=== PATIENT | male | born 1960 | race African-American/Black ===

== ENCOUNTER 2017-08-04 14:30 | Emergency (ER) | payer OTHER ==
[~2017-08-04] VITALS: Ht 175.3 cm; Wt 80.0 kg
[2017-08-04 14:33] VITALS: BP 160/90; PULSE 103; RESP 12; TEMP 98.5; O2SAT 97
[2017-08-04] MEDS ORDERED: DILA100C PO ×2 (16:30→19:27)
[2017-08-04] MEDS ORDERED: AMLO10TA2 PO ×2 (16:30→19:27)
--- NOTE | 2017-08-04 17:27 | PD ---
HPI . Cough Chief Complaint: Cold / Flu Symptoms Time Seen by Provider: 16:31 Travel History International Travel<30 days: No Contact w/Intl Traveler<30days: No Traveled to known affect area: No History of Present Illness HPI 57-year-old male patient presents emergency department for evaluation of cough 3-4 days. Patient states the cough is productive in nature and he is coughing up yellow thick phlegm. Patient denies any fever or chills. Patient states he does feel short of breath when he starts coughing. Patient is a smoker and smokes about 6 cigarettes a day but is trying to quit. Patient's major medical history seizures. He takes Dilantin for his seizures. PFSH Past Medical History Diminished Hearing: No Hypertension: Yes Seizures: Yes Influenza Vaccination: No Past Surgical History Abdominal Surgery: Yes Neurologic Surgery: Yes Social History Alcohol Use: No Tobacco Use: Yes (09/26 PPD) Substance Use: No Allergies-Medications (Allergen,Severity, Reaction): Coded Allergies: No Known Allergies (Unverified , 08/04/17) Reported Meds & Prescriptions Reported Meds & Active Scripts Active Reported Amlodipine (Amlodipine Besylate) 10 Mg Tab 10 Mg PO DAILY Dilantin (Phenytoin Extended) 100 Mg Cap 300 Mg PO BID Review of Systems Except as stated in HPI: all other systems reviewed are Neg Respiratory: Positive: Cough, Shortness of Breath Physical Exam Narrative GENERAL: Well-nourished, well-developed 57-year-old male patient in no acute respiratory distress. Nontoxic appearing. SKIN: Focused skin assessment warm/dry. HEAD: Normocephalic. Atraumatic. EYES: No scleral icterus. No injection or drainage. THROAT: Mild pharyngeal injection, No exudates, or tonsillar hypertrophy. Airway is patent. EARS: Bilateral pinnae and external canals appear within normal limits. Bilateral tympanic membranes without erythema, dullness or perforation. NECK: Supple, trachea midline. No JVD or lymphadenopathy. CARDIOVASCULAR: Regular rate and rhythm without murmurs, gallops, or rubs. RESPIRATORY: Breath sounds clear throughout and equal bilaterally. No accessory muscle use. GASTROINTESTINAL: Abdomen soft, non-tender, nondistended. MUSCULOSKELETAL: No cyanosis, or edema. BACK: Nontender without obvious deformity. No CVA tenderness. Data Data Last Documented VS Vital Signs Date Time Temp Pulse Resp B/P (MAP) Pulse Ox O2 Delivery O2 Flow Rate FiO2 08/04/17 16:09 Room Air 08/04/17 14:33 98.5 103 12 160/90 (113) 97 Orders Orders Chest, Single Ap (08/04/17 17:20) MDM Medical Decision Making Medical Screen Exam Complete: Yes Emergency Medical Condition: Yes Differential Diagnosis Differential diagnoses include but not limited to bronchitis, pneumonia, URI, pharyngitis Narrative Course 57-year-old male patient presents emergency department for evaluation of productive cough 3-4 days. Patient is a smoker. Chest x-ray ordered and pending. Chest x-ray shows no acute disease. Patient will be discharged home with prescription for a Z-Sebas for bronchitis. Patient will be given instructions on supportive care and told to follow up with his primary care return the emergency Department with any worsening condition. Last Impressions Chest X-Ray 08/04/17 1720 Signed Impressions: Service Date/Time: Friday, August 04, 2017 17:35 - CONCLUSION: No acute cardiopulmonary abnormality is identified. Manolo Strickland MD Diagnosis Primary Impression: Bronchitis Referrals: Primary Care Physician Patient Instructions: Acute Bronchitis (ED), General Instructions, How to Stop Smoking (ED) Additional Instructions: Please return to emergency department if your symptoms return or worsen. Follow up with your primary care provider. Take medications as prescribed. Stop smoking. May take ibuprofen or Tylenol as needed for pain or fever. Med/Other Pt SpecificInfo: Prescription(s) given Scripts Azithromycin (Azithromycin) 250 Mg Tab 250 MG PO DIRECTED for Infection, #6 TAB 0 Refills Take 2 tabs (500 mg) on day 1 then 1 tab daily x 4 days. Prov: Paulina Jones Shonda ANDERSON 08/04/17 Disposition: 01 DISCHARGE HOME Condition: Stable Paulina Jones Shonda ANDERSON Aug 04, 2017 17:27
--- NOTE | 2017-08-04 17:59 | RADRPT ---
EXAM DATE/TIME: 08/04/2017 17:35 [facility] COMPARISON: No previous studies available for comparison. INDICATIONS : Shortness of breath. MEDICAL HISTORY : Hypertension. Seizures SURGICAL HISTORY : None. ENCOUNTER: Initial ACUITY: 4 - 6 days PAIN SCORE: 0/10 LOCATION: Bilateral chest FINDINGS: Portable AP view of the chest demonstrates a normal-sized cardiac silhouette. No effusion, consolidat ion, or pneumothorax is visualized. There are linear opacities in the peripheral right midlung zone l ikely representing parenchymal scar or mild atelectasis. The bones and soft tissues demonstrate no ac [place] abnormality. CONCLUSION: No acute cardiopulmonary abnormality is identified. Manolo Strickland MD on August 04, 2017 at 17:57 Board Certified Radiologist. This report was verified electronically.
[2017-08-04] MEDS ORDERED: AZIT250T3 PO (18:31)
[2017-08-04] MEDS ORDERED: PHENYTOIN SODIUM 100 MG CAP PO SCH (19:30)
[2017-08-04 19:31] VITALS: BP 165/82; PULSE 86; RESP 20; O2SAT 96
--- NOTE | 2017-08-04 19:32 | PD ---
Physical Exam Narrative Prior to discharge patient requesting a refill of his Dilantin and amlodipine. Patient states that he last took his Dilantin this morning was only able to take 200 mg. Patient reports he is supposed to take 300 milligrams twice a day. Patient states he also takes amlodipine 10 mg daily. Patient states he has an appointment scheduled with his primary care doctor in [facility]. Patient reports he is here on vacation and is out of his medications. Data Data Last Documented VS Vital Signs Date Time Temp Pulse Resp B/P (MAP) Pulse Ox O2 Delivery O2 Flow Rate FiO2 08/04/17 16:09 Room Air 08/04/17 14:33 98.5 103 12 160/90 (113) 97 Orders Orders Chest, Single Ap (08/04/17 17:20) Ed Discharge Order (08/04/17 18:32) Phenytoin (Dilantin) (08/04/17 19:30) MDM Supervised Visit with RAYMUNDO: No Narrative Course Patient in no obvious distress upon re-evaluation. Informed patient wouldn't give him one week's worth of prescription medicine and he would need additional refills from his primary care doctor. Patient is agreeable to this. Patient was asked if they wanted to speak to my attending, which the patient did not wish to do at this time. Any questions/concerns in reference to patient diagnosis/condition discussed and clarified prior to patient's discharge. Reinforced sheer importance of close follow up with patient's primary physician or primary care clinic. Instructed patient to return to ED immediately, if symptoms return/worsen. Patient showed understanding of above instructions. Further instructions and recommendations were detailed in discharge paperwork. Patient ambulated without difficulty out of ED at discharge. Diagnosis Primary Impression: Bronchitis Additional Impression: Medication refill Referrals: Primary Care Physician Patient Instructions: Acute Bronchitis (ED), General Instructions, How to Stop Smoking (ED), Medication Refill, ED Departure Forms: Tests/Procedures Additional Instruction: Please return to emergency department if your symptoms return or worsen. Follow up with your primary care provider. Take medications as prescribed. Stop smoking. May take ibuprofen or Tylenol as needed for pain or fever. Scripts Amlodipine (Amlodipine) 10 Mg Tab 10 MG PO DAILY for Blood Pressure Management for 7 Days, #7 TAB 0 Refills Prov: Perla Soares DO 08/04/17 Phenytoin Extended (Dilantin) 100 Mg Cap 300 MG PO BID for Control Seizures for 7 Days, #42 CAP 0 Refills Prov: Perla Soares 08/04/17 Azithromycin (Azithromycin) 250 Mg Tab 250 MG PO DIRECTED for Infection, #6 TAB 0 Refills Take 2 tabs (500 mg) on day 1 then 1 tab daily x 4 days. Prov: KarenPaulinaalejandra ANDERSON 08/04/17 Disposition: 01 DISCHARGE HOME Condition: Stable Samuel Bullock Aug 04, 2017 19:32
== END 2017-08-04 19:47 | disposition home or self-care (01) ==
LOC: NEPD 14:30
DX: J40 Bronchitis, not specified as acute or chronic (principal); F17.210 Nicotine dependence, cigarettes, uncomplicated
CPT/HCPCS: 71010; 99283

== ENCOUNTER 2017-08-23 11:10 | Emergency (ER) | payer OTHER ==
[~2017-08-23] VITALS: Ht 175.3 cm; Wt 87.5 kg
[~2017-08-23 11:10] MED LIST: AMLO10TA2 PO; AZIT250T3 PO; DILA100C PO
[2017-08-23 11:11] VITALS: BP 167/91; PULSE 100; RESP 20; TEMP 98.9; O2SAT 95
[2017-08-23] MEDS ORDERED: SODIUM CHLORIDE 0.9% FLUSH 10 ML FLUSH IVF PRN (11:30)
--- NOTE | 2017-08-23 11:38 | PD ---
HPI Chief Complaint: Dizziness Time Seen by Provider: 11:30 Travel History International Travel<30 days: No Contact w/Intl Traveler<30days: No Traveled to known affect area: No History of Present Illness HPI 57 year old male presents to the emergency department for evaluation of dizziness, headache that started last night. Patient states he has a bilateral temporal headache, 8/10, aching without radiation that started gradually last night. He states it is actually better now than it was. He states that he was feeling like he was going to have a seizure. He, however, is unsure if he had a seizure. He states he usually knows if he bites his tongue, but denies any lacerations/abrasions to the tongue. He is on Dilantin for his seizures. He states that he is running out of his Dilantin, but is not yet. He does state that he took his Dilantin this morning. He states he has not taken his amlodipine to 3 days for his hypertension. He states that he is from [facility] and does not have a primary care physician appear even though he would like to stay appear. The patient thinks that his headache and dizziness that may also be due to high blood pressure. He denies any chest pain or shortness breath. No new abdominal pain. No nausea, vomiting, diarrhea, constipation. No syncope. Patient appears well on exam. Moderate severity. No alleviating or exacerbating factors. PFSH Past Medical History Diminished Hearing: No Hypertension: Yes Seizures: Yes Past Surgical History Abdominal Surgery: Yes Neurologic Surgery: Yes Social History Alcohol Use: No Tobacco Use: Yes (09/26 PPD) Substance Use: No Allergies-Medications (Allergen,Severity, Reaction): Coded Allergies: No Known Allergies (Unverified , 08/04/17) Reported Meds & Prescriptions Reported Meds & Active Scripts Active Amlodipine (Amlodipine Besylate) 10 Mg Tab 10 Mg PO DAILY 7 Days Dilantin (Phenytoin Extended) 100 Mg Cap 300 Mg PO BID 7 Days Azithromycin 250 Mg Tab 250 Mg PO DIRECTED Take 2 tabs (500 mg) on day 1 then 1 tab daily x 4 days. Review of Systems Except as stated in HPI: all other systems reviewed are Neg Physical Exam Narrative GENERAL: Well-nourished, well-developed male patient, ambulatory. Afebrile. SKIN: Focused skin assessment warm/dry. HEAD: Normocephalic. Atraumatic. EYES: No scleral icterus. No injection or drainage. PERRLA. EOM intact. ENT: Mucosa pink and moist. No erythema or exudates. No uvular edema. No uvular , palatal, or tonsillar deviation. Airway patent. Nasal turbinates appear normal without nasal blood, purulent drainage or septal hematoma. Bilateral tympanic membranes are clear without erythema or perforation. NECK: Supple, trachea midline. No JVD or lymphadenopathy. CARDIOVASCULAR: Regular rate and rhythm without murmurs, gallops, or rubs. Bilateral radial and pedal pulses are 2+. RESPIRATORY: Breath sounds equal bilaterally. No accessory muscle use. Lungs sounds are clear to auscultation. GASTROINTESTINAL: Abdomen soft, non-tender, nondistended. MUSCULOSKELETAL: No cyanosis, or edema. Bilateral upper and lower extremity strength 5/5. All extremities are neurovascularly intact. BACK: Nontender without obvious deformity. No CVA tenderness. NEUROLOGICAL: Awake and alert. Cranial nerves II through XII intact. Motor and sensory grossly within normal limits. Five out of 5 muscle strength in all muscle groups. Normal speech. Finger to nose is normal bilaterally. Heel-to- giraldo is normal bilaterally. Data Data Last Documented VS Vital Signs Date Time Temp Pulse Resp B/P (MAP) Pulse Ox O2 Delivery O2 Flow Rate FiO2 08/23/17 11:11 98.9 100 20 167/91 (116) 95 Room Air Orders Orders Electrocardiogram (08/23/17 11:28) Basic Metabolic Panel (Bmp) (08/23/17 11:28) Complete Blood Count With Diff (08/23/17 11:28) Magnesium (Mg) (08/23/17 11:28) Ckmb (Isoenzyme) Profile (08/23/17 11:28) Troponin I (08/23/17 11:28) Ct Brain W/O Iv Contrast(Rout) (08/23/17 11:28) Ecg Monitoring (08/23/17 11:28) Iv Access Insert/Monitor (08/23/17 11:28) Oximetry (08/23/17 11:28) Sodium Chloride 0.9% Flush (Ns Flush) (08/23/17 11:30) Amlodipine (Norvasc) (08/23/17 11:30) Phenytoin (Dilantin) (08/23/17 11:28) CKMB (08/23/17 11:45) CKMB% (08/23/17 11:45) Labs Laboratory Tests Test 08/23/17 11:45 White Blood Count 3.6 TH/MM3 Red Blood Count 5.41 MIL/MM3 Hemoglobin 15.6 GM/DL Hematocrit 47.4 % Mean Corpuscular Volume 87.5 FL Mean Corpuscular Hemoglobin 28.8 PG Mean Corpuscular Hemoglobin Concent 32.9 % Red Cell Distribution Width 14.7 % Platelet Count 161 TH/MM3 Mean Platelet Volume 8.3 FL Neutrophils (%) (Auto) 47.6 % Lymphocytes (%) (Auto) 40.7 % Monocytes (%) (Auto) 9.5 % Eosinophils (%) (Auto) 1.7 % Basophils (%) (Auto) 0.5 % Neutrophils # (Auto) 1.7 TH/MM3 Lymphocytes # (Auto) 1.5 TH/MM3 Monocytes # (Auto) 0.3 TH/MM3 Eosinophils # (Auto) 0.1 TH/MM3 Basophils # (Auto) 0.0 TH/MM3 CBC Comment DIFF FINAL Differential Comment Blood Urea Nitrogen 18 MG/DL Creatinine 1.45 MG/DL Random Glucose 108 MG/DL Calcium Level 9.0 MG/DL Magnesium Level 2.0 MG/DL Sodium Level 140 MEQ/L Potassium Level 4.1 MEQ/L Chloride Level 103 MEQ/L Carbon Dioxide Level 33.1 MEQ/L Anion Gap 4 MEQ/L Estimat Glomerular Filtration Rate 61 ML/MIN Total Creatine Kinase 194 U/L Creatine Kinase MB 2.2 NG/ML Troponin I LESS THAN 0.02 NG/ML Phenytoin (Dilantin) Level 18.5 MCG/ML [facility] Medical Decision Making Medical Screen Exam Complete: Yes Emergency Medical Condition: Yes Medical Record Reviewed: Yes Differential Diagnosis Medication refill versus electrolyte abnormality versus intracranial abnormality versus tension-type headache versus dehydration versus seizure Narrative Course 57-year-old male presents to the emergency department for evaluation of dizziness, headache that started last night. He is unsure if he had a seizure last night. He is currently on Dilantin. He also reports hypertension and being out of his blood pressure medication for 3 days. Patient does appear well and exam. EKG, CBC, BMP, magnesium, CK, troponin, Dilantin level, CT of the brain are ordered and pending. Patient is given amlodipine 10 mg by mouth. EKG shows sinus rhythm, heart rate 86, no acute ST changes. CBC shows no acute abnormality. BMP shows no acute abnormality. Magnesium is 2.0. CK is 194. Troponin is less than 0.02. Dilantin level is 18.5. CT of the brain shows probable chronic changes left lobe of the region without hemorrhage. Upon reexamination, patient reports relief of his headache after amlodipine. His blood pressure is now 129/84. Patient is requesting refills of his Dilantin and his amlodipine. These will be given today. He is encouraged to follow primary care physician for further refills. The patient was discharged in stable condition with instructions, including return instructions and follow up instructions. Diagnosis Primary Impression: Medication refill Additional Impression: Headache Qualified Codes: R51 - Headache Referrals: Primary Care Physician call for appointment Patient Instructions: General Instructions, Medication Refill, ED Additional Instructions: Take amlodipine as directed as prescribed. Take Dilantin as directed as prescribed. Follow-up with your primary care physician for further refills. Return to the emergency department for any acute worsening of symptoms. Med/Other Pt SpecificInfo: Prescription(s) given Scripts Amlodipine (Amlodipine) 10 Mg Tab 10 MG PO DAILY for Blood Pressure Management for 30 Days, #30 TAB 0 Refills Prov: Rina Stokes 08/23/17 Phenytoin Extended (Dilantin) 100 Mg Cap 300 MG PO BID for Control Seizures for 30 Days, #180 CAP 0 Refills Prov: Rina Stokes 08/23/17 Disposition: 01 DISCHARGE HOME Condition: Stable Rina Stokes Aug 23, 2017 11:37
[2017-08-23 12:00] VITALS: BP 164/107; PULSE 88; RESP 16; O2SAT 99
[2017-08-23 12:04] LABS: AUTOMATED NEUTROPHIL # 1.7 TH/MM3 (1.8-7.7); BASOPHIL % 0.5 % (0.0-2.0); EOSINOPHIL # 0.1 TH/MM3 (0-0.4); EOSINOPHIL % 1.7 % (0.0-4.0); HEMATOCRIT 47.4 % (39.0-51.0); HEMO FLAGS DIFF FINAL; LYMPH % 40.7 % (9.0-44.0); LYMPHOCYTE # 1.5 TH/MM3 (1.0-4.8); MEAN CELL VOLUME 87.5 FL (80.0-100.0); MEAN CORPUSCULAR HEMOGLOBIN 28.8 PG (27.0-34.0); MEAN CORPUSCULAR HGB CONC 32.9 % (32.0-36.0); MONO % 9.5 % (0.0-8.0); NEUT % 47.6 % (16.0-70.0); PLATELET COUNT 161 TH/MM3 (150-450); RED BLOOD COUNT 5.41 MIL/MM3 (4.50-5.90); RED CELL DISTRIBUTION WIDTH 14.7 % (11.6-17.2); WHITE BLOOD COUNT 3.6 TH/MM3 (4.0-11.0)
--- NOTE | 2017-08-23 12:15 | RADRPT ---
EXAM DATE/TIME: 08/23/2017 11:58 [facility] COMPARISON: No previous studies available for comparison. INDICATIONS : Headache along with dizziness and nausea. Off blood pressure medicine for three days RADIATION DOSE: 31.39 CTDIvol (mGy) MEDICAL HISTORY : Hypertension. Seizures. SURGICAL HISTORY : None. ENCOUNTER: Initial ACUITY: 3 days PAIN SCALE: 3/10 LOCATION: cranial TECHNIQUE: Multiple contiguous axial images were obtained of the head. Using automated exposure control and adj ustment of the mA and/or kV according to patient size, radiation dose was kept as low as reasonably a chievable to obtain optimal diagnostic quality images. DICOM format image data is available electro nically for review and comparison. FINDINGS: The study is abnormal. There is an area of apparent encephalomalacia containing some calcification i n the left orbitofrontal region. I have no prior studies for comparison. The right hemisphere is un remarkable. Posterior fossa appears normal. CONCLUSION: Probable chronic changes left lobe of the region without hemorrhage. Thee Guadalupe MD FACR on August 23, 2017 at 12:11 Board Certified Radiologist. This report was verified electronically.
[2017-08-23 12:21] LABS: ANION GAP 4 MEQ/L (5-15); BICARBONATE 33.1 MEQ/L (21.0-32.0); BLOOD UREA NITROGEN 18 MG/DL (7-18); CHLORIDE 103 MEQ/L (98-107); GLOMERULAR FILTRATION RATE 61 ML/MIN (>89); POTASSIUM 4.1 MEQ/L (3.5-5.1); SODIUM (NA) 140 MEQ/L (136-145)
[2017-08-23 12:25] LABS: CREATINE KINASE 194 U/L (39-308)
[2017-08-23 12:37] LABS: CKMB 2.2 NG/ML (0.5-3.6)
[2017-08-23] MEDS ORDERED: DILA100C PO (12:51)
[2017-08-23] MEDS ORDERED: AMLO10TA2 PO (12:51)
[2017-08-23 13:00] VITALS: BP 134/100; PULSE 88; RESP 18; O2SAT 99
[2017-08-23 13:29] VITALS: BP 129/84
--- NOTE | 2017-08-25 23:41 | EKG ---
Date Performed: 08/23/2017 Time Performed: 11:38:48 PTAGE: 57 years EKG: Sinus rhythm LEFT ATRIAL ENLARGEMENT ABNORMAL ECG NO PREVIOUS TRACING DOCTOR: Hever Wise Interpretating Date/Time 08/25/2017 23:41:17
== END 2017-08-23 13:34 | disposition home or self-care (01) ==
LOC: NEPC 11:10
DX: Z76.0 Encounter for issue of repeat prescription (principal); R51 Headache; R42 Dizziness and giddiness; R94.31 Abnormal electrocardiogram [ECG] [EKG]; R56.9 Unspecified convulsions; I10 Essential (primary) hypertension; F17.200 Nicotine dependence, unspecified, uncomplicated; Z79.899 Other long term (current) drug therapy
CPT/HCPCS: 70450; 80048; 80185; 82550; 82552; 83735; 84484; 85025; 93005; 99285

== ENCOUNTER 2017-10-10 14:40 | Emergency (ER) | payer OTHER ==
[~2017-10-10] VITALS: Ht 175.3 cm; Wt 88.0 kg
[2017-10-10 14:41] VITALS: BP 154/92; PULSE 125; RESP 20; TEMP 98.9; O2SAT 97
--- NOTE | 2017-10-10 15:37 | RADRPT ---
EXAM DATE/TIME: 10/10/2017 15:28 [facility] COMPARISON: CHEST SINGLE AP, August 04, 2017, 17:35. INDICATIONS : Cough. MEDICAL HISTORY : Hypertension. seizures SURGICAL HISTORY : None. ENCOUNTER: Initial ACUITY: 1 day PAIN SCORE: 0/10 LOCATION: Bilateral chest FINDINGS: PA and lateral views of the chest demonstrate the lungs to be symmetrically aerated without evidence of mass, infiltrate or effusion except for some atelectasis in the right mid lung zone. The cardiome diastinal contours are unremarkable. Osseous structures are intact. CONCLUSION: Mild patchy areas of atelectasis predominantly in the right midlung zone Jenaro Duncan MD on October 10, 2017 at 15:34 Board Certified Radiologist. This report was verified electronically.
--- NOTE | 2017-10-10 16:10 | PD ---
HPI Chief Complaint: Cold / Flu Symptoms Time Seen by Provider: 15:26 Travel History International Travel<30 days: No Contact w/Intl Traveler<30days: No Traveled to known affect area: No History of Present Illness HPI 57-year-old male presents to emergency Department with complaint of cough, chest congestion, nasal congestion, sore throat, body aches, headache 3 days. Denies fevers. Denies chest pain, chest tightness, shortness of breath, wheezing. Denies abdominal pain, vomiting. Symptoms are mild in severity. Has not taken any medications or tried any treatments to alleviate symptoms. No known aggravating or relieving factors. No known sick contacts. Primary care provider is down in [facility]. History of seizures and hypertension. Needs refills on his Dilantin and amlodipine. Just ran out yesterday. Has no medical complaints. No other modifying factors or associated signs and symptoms. PFSH Past Medical History Cardiovascular Problems: Yes (HTN) Diminished Hearing: No Hypertension: Yes Neurologic: Yes (HEAD INJURY ) Immunizations Current: Yes Seizures: Yes Past Surgical History Abdominal Surgery: Yes Neurologic Surgery: Yes (HEAD TRAUMA ) Social History Alcohol Use: No Tobacco Use: Yes (09/26 PPD) Substance Use: No Allergies-Medications (Allergen,Severity, Reaction): Coded Allergies: No Known Allergies (Unverified , 08/04/17) Reported Meds & Prescriptions Reported Meds & Active Scripts Active Amlodipine (Amlodipine Besylate) 10 Mg Tab 10 Mg PO DAILY 30 Days Dilantin (Phenytoin Extended) 100 Mg Cap 300 Mg PO BID 30 Days Review of Systems Except as stated in HPI: all other systems reviewed are Neg Physical Exam Narrative GENERAL: Well-nourished, well-developed black male patient, in no acute distress ; afebrile, nontoxic-appearing SKIN: Warm and dry. No rash. HEAD: Atraumatic. Normocephalic. EYES: Pupils equal and round. No scleral icterus. No injection or drainage. ENT: Mucosa pink and moist. No erythema or exudates. No uvular edema. No uvular , palatal, or tonsillar deviation. Airway patent. EARS: Bilateral pinnae and external canals appear within normal limits. Bilateral tympanic membranes without erythema, dullness or perforation. NECK: Trachea midline. No lymphadenopathy. CARDIOVASCULAR: Regular rate and rhythm. No murmur appreciated. RESPIRATORY: No accessory muscle use. Clear to auscultation. Breath sounds equal bilaterally. No retractions or tachypnea. GASTROINTESTINAL: Abdomen soft, non-tender, nondistended. Hepatic and splenic margins not palpable. Bowel sounds are active 4 quadrants. MUSCULOSKELETAL: No obvious deformities. No clubbing. No cyanosis. No edema. NEUROLOGICAL: Awake and alert. Oriented 3. No obvious cranial nerve deficits. Motor grossly within normal limits. Normal speech. Moves all extremities. 5/5 strength to all extremities. PSYCHIATRIC: Appropriate mood and affect; insight and judgment normal. Data Data Last Documented VS Vital Signs Date Time Temp Pulse Resp B/P (MAP) Pulse Ox O2 Delivery O2 Flow Rate FiO2 10/10/17 16:37 104 10/10/17 14:41 98.9 20 97 Orders Orders Chest, Pa & Lat (10/10/17 ) Influenzae A/B Antigen (10/10/17 15:27) Group A Rapid Strep Screen (10/10/17 16:15) Strep Culture (Group A) (10/10/17 16:10) Ed Discharge Order (10/10/17 17:00) MDM Medical Decision Making Medical Screen Exam Complete: Yes Emergency Medical Condition: Yes Medical Record Reviewed: Yes Differential Diagnosis Influenza, rapid strep, viral illness,pneumonia, medication refill Narrative Course 57-year-old male with cold/flu symptoms 3 days. Patient is afebrile and nontoxic-appearing. Denies fever, vomiting. Is also requesting refills on Dilantin and amlodipine. Just ran out of his medications yesterday. Chest x- ray ordered in triage. Influenza and rapid strep ordered. 1609: Chest x-ray concludes Chest X-Ray 10/10/17 0000 Signed Impressions: Service Date/Time: September 15:28 - CONCLUSION: Mild patchy areas of atelectasis predominantly in the right midlung zone Jenaro Duncan MD 1636: Influenza negative. 1658: rapid strep negative. Discussed viral illness and symptom management. Patient verbalizes understanding and agreement. Dilantin and amlodipine refills prescribed for home. Instructed patient to follow up with primary care provider. Patient verbalizes understanding and agreement with treatment plan. Patient is medically cleared and stable for discharge. Discussed reasons to return to the emergency department. Patient agrees with treatment plan. The patients vital signs are stable and the patient is stable for outpatient follow- up and treatment. Patient discharged home, stable and in no acute distress. Diagnosis Primary Impression: Viral illness Additional Impression: Medication refill Referrals: [facility] Primary Care Physician Patient Instructions: Cold Symptoms (ED), General Instructions, Medication Refill, ED, Safe Use of Cough and Cold Medicines (ED) Additional Instructions: Ibuprofen or Tylenol as directed and as needed to reduce fever; may alternate ibuprofen and Tylenol as needed every 3 hours to minimize fever [id number] cold/flu medications as directed and as needed for symptom management Get plenty of sleep/rest Drink plenty of fluids to prevent dehydration; such as Gatorade, Powerade, Pedialyte [place] diet to encourage nutrition such as crackers, fruit, applesauce, toast, soup etc. Use an air humidifier/turn off ceiling fans Follow-up with your primary care provider within 1 day Return immediately to the emergency department with worsening of symptoms Med/Other Pt SpecificInfo: Prescription(s) given Scripts Amlodipine (Amlodipine) 10 Mg Tab 10 MG PO DAILY for Blood Pressure Management for 30 Days, #30 TAB 0 Refills Prov: Kemi Shukla 10/10/17 Phenytoin Extended (Dilantin) 100 Mg Cap 300 MG PO BID for Control Seizures for 30 Days, #180 CAP 0 Refills Prov: Kemi Shukla 10/10/17 Disposition: 01 DISCHARGE HOME Condition: Stable Kemi Shukla Oct 10, 2017 16:10
[2017-10-10 16:37] VITALS: PULSE 104
[2017-10-10] MEDS ORDERED: AMLO10TA2 PO (16:37)
[2017-10-10] MEDS ORDERED: DILA100C PO (16:37)
== END 2017-10-10 17:11 | disposition home or self-care (01) ==
LOC: NEPK 14:40
DX: B34.9 Viral infection, unspecified (principal); J98.11 Atelectasis; I10 Essential (primary) hypertension; R56.9 Unspecified convulsions; F17.210 Nicotine dependence, cigarettes, uncomplicated; Z76.0 Encounter for issue of repeat prescription
CPT/HCPCS: 71046; 87081; 87804; 87880; 99284

== ENCOUNTER 2017-11-05 10:29 | Emergency (ER) | payer OTHER ==
[~2017-11-05] VITALS: Ht 175.3 cm; Wt 86.4 kg
[~2017-11-05 10:29] MED LIST changes: -AZIT250T3 PO
[2017-11-05 10:30] VITALS: BP 159/88; PULSE 97; RESP 18; TEMP 98.1; O2SAT 93
[2017-11-05] MEDS ORDERED: PHEN300C3 PO ×2 (11:35→12:01)
[2017-11-05] MEDS ORDERED: DILA100C PO (11:48)
[2017-11-05] MEDS ORDERED: AMLO10TA2 PO (11:48)
--- NOTE | 2017-11-05 11:52 | PD ---
HPI Chief Complaint: Medication Refill Request Time Seen by Provider: 11:43 Travel History International Travel<30 days: No Contact w/Intl Traveler<30days: No Traveled to known affect area: No History of Present Illness HPI 57-year-old male with history of seizures, hypertension, presents requesting medication refill. Specifically he is requesting a refill of his Dilantin 300 mg BID and amlodipine 10 mg daily. He ran out today. Symptoms are mild, aggravated by running out of his medication, alleviated by taking his medication. He reports that he lives in [facility], plans on returning home next week to follow-up with his primary care physician. No other complaints. PFSH Past Medical History Cardiovascular Problems: Yes Diminished Hearing: No Hypertension: Yes Neurologic: Yes (HEAD INJURY ) Immunizations Current: Yes Seizures: Yes Past Surgical History Abdominal Surgery: Yes Neurologic Surgery: Yes (HEAD TRAUMA ) Social History Alcohol Use: No Tobacco Use: Yes (09/26 PPD) Substance Use: No Allergies-Medications (Allergen,Severity, Reaction): Coded Allergies: No Known Allergies (Unverified , 08/04/17) Reported Meds & Prescriptions Reported Meds & Active Scripts Active Dilantin (Phenytoin Extended) 100 Mg Cap 300 Mg PO BID 30 Days Amlodipine (Amlodipine Besylate) 10 Mg Tab 10 Mg PO DAILY 30 Days Reported Phenytoin Extended 300 Mg Cap 300 Mg PO TID Review of Systems General / Constitutional: No: Fever, Chills Eyes: No: Blurred Vision HENT: No: Headaches Cardiovascular: No: Chest Pain or Discomfort Respiratory: No: Shortness of Breath Neurologic: No: Weakness, Dizziness, Syncope, Seizures Physical Exam Narrative GENERAL: Well-developed well-nourished male in no acute distress SKIN: Warm and dry. HEAD: Atraumatic. Normocephalic. EYES: Pupils equal and round. No scleral icterus. No injection or drainage. ENT: No nasal bleeding or discharge. Mucous membranes pink and moist. NECK: Trachea midline. No JVD. CARDIOVASCULAR: Regular rate and rhythm. No murmur appreciated. RESPIRATORY: No accessory muscle use. Clear to auscultation. Breath sounds equal bilaterally. NEUROLOGICAL: Awake and alert. No obvious cranial nerve deficits. Motor grossly within normal limits. Normal speech. PSYCHIATRIC: Appropriate mood and affect; insight and judgment normal. Data Data Last Documented VS Vital Signs Date Time Temp Pulse Resp B/P (MAP) Pulse Ox O2 Delivery O2 Flow Rate FiO2 11/05/17 10:30 98.1 97 18 159/88 (111) 93 Room Air MDM Medical Decision Making Medical Screen Exam Complete: Yes Emergency Medical Condition: Yes Medical Record Reviewed: Yes Differential Diagnosis Medication refill, hypertension, seizure disorder Narrative Course The patient will be given a refill of his medications with the understanding that he is to follow-up with his primary care physician. Diagnosis Primary Impression: Medication refill Additional Instructions: Follow-up with your primary care physician. Med/Other Pt SpecificInfo: Prescription(s) given Scripts Phenytoin Extended (Dilantin) 100 Mg Cap 300 MG PO BID for Control Seizures for 30 Days, #180 CAP 0 Refills Prov: Helen Amezcua MD 11/05/17 Amlodipine (Amlodipine) 10 Mg Tab 10 MG PO DAILY for Blood Pressure Management for 30 Days, #30 TAB 0 Refills Prov: Helen Amezcua MD 11/05/17 Disposition: 01 DISCHARGE HOME Condition: Stable Vinnie Be Nov 05, 2017 11:52
== END 2017-11-05 12:05 | disposition home or self-care (01) ==
LOC: NEPK 10:29
DX: R56.9 Unspecified convulsions (principal); I10 Essential (primary) hypertension; F17.210 Nicotine dependence, cigarettes, uncomplicated; Z76.0 Encounter for issue of repeat prescription
CPT/HCPCS: 99281

== ENCOUNTER 2018-01-16 09:17 | Emergency (ER) | payer OTHER ==
[~2018-01-16 09:17] MED LIST changes: -DILA100C PO; +PHEN300C3 PO
[2018-01-16 09:30] VITALS: BP 174/98; PULSE 95; RESP 18; TEMP 98.5; O2SAT 98
--- NOTE | 2018-01-16 10:07 | PD ---
HPI Chief Complaint: Complaint Time Seen by Provider: 09:55 Travel History International Travel<30 days: No Contact w/Intl Traveler<30days: No Traveled to known affect area: No History of Present Illness HPI 57-year-old male presents to the emergency department wanting to be checked for an STD. He denies penile drainage, penile pain. Denies testicular pain or swelling. Denies dysuria. Denies abdominal pain, fever, vomiting. [place] rumor that some girl that was down here that he had sexual intercourse with may have had an STD, but he is not sure. Symptoms are mild in severity. No known aggravating or relieving factors. No treatments tried. No known allergies. Primary care provider is in [facility]. History of hypertension. Has no other medical complaints. No other modifying factors or associated signs and symptoms. History Social History Alcohol Use: No Tobacco Use: Yes (09/26 PPD) Allergies-Medications (Allergen,Severity, Reaction): Coded Allergies: No Known Allergies (Unverified , 08/04/17) Reported Meds & Prescriptions Reported Meds & Active Scripts Active Phenytoin Extended 300 Mg Cap 300 Mg PO TID 30 Days Amlodipine (Amlodipine Besylate) 10 Mg Tab 10 Mg PO DAILY 30 Days Review of Systems Except as stated in HPI: all other systems reviewed are Neg Physical Exam Narrative GENERAL: Well-nourished, well-developed black male patient, in no acute distress SKIN: Warm and dry. HEAD: Atraumatic. Normocephalic. EYES: Pupils equal and round. No scleral icterus. No injection or drainage. ENT: Mucosa pink and moist. Airway patent. NECK: Trachea midline. CARDIOVASCULAR: Regular rate. RESPIRATORY: No accessory muscle use. GASTROINTESTINAL: Flat. MUSCULOSKELETAL: No obvious deformities. No clubbing. No cyanosis. No edema. NEUROLOGICAL: Awake and alert. Oriented 3. No obvious cranial nerve deficits. Motor grossly within normal limits. Normal speech. PSYCHIATRIC: Appropriate mood and affect; insight and judgment normal. Data Data Last Documented VS Vital Signs Date Time Temp Pulse Resp B/P (MAP) Pulse Ox O2 Delivery O2 Flow Rate FiO2 01/16/18 09:30 98.5 95 18 174/98 (123) 98 MDM Medical Screen Exam Complete: Yes Emergency Medical Condition: No Differential Diagnosis STD screening, STD, medical clearance Narrative Course 57-year-old male presents requesting STD screening. He is asymptomatic. After informing him that we would not test for STDs without symptoms he tried telling me that he he now had penile drainage and wanted to be checked. I will base my decision off of his first report of no symptoms and the patient can follow-up outpatient for screening. I instructed the patient that he can follow-up at the [facility] or his primary care provider for full STD screening. Patient was provided information for the [facility] for follow-up. Vital signs are stable and the patient is stable for outpatient follow-up and treatment. The patient has no urgent or emergent medical complaints. There is no emergent or urgent medical need at this time. I instructed the patient to follow up with their primary care provider. A medical screening exam was performed: At the time of evaluation the presenting medical condition was determined not to be of an emergent nature. The patient was given the option of receiving additional care, but declined. Patient was given options for additional community resources from which to obtain care. The Patient Has Been advised to seek medical attention for their presenting complaint. The patient has been advised to return to the ER at any time if an emergent condition develops. Primary Impression: Encounter for medical screening examination Condition: Stable Kemi Shukla Jan 16, 2018 10:07
== END 2018-01-16 10:17 | disposition left against medical advice (07) ==
LOC: NEPK 09:17
DX: Z11.3 Encounter for screening for infections with a predominantly sexual mode of transmission (principal); I10 Essential (primary) hypertension; F17.200 Nicotine dependence, unspecified, uncomplicated; Z79.899 Other long term (current) drug therapy
CPT/HCPCS: 99281

== ENCOUNTER 2018-01-27 11:58 | Observation (INO) | payer OTHER ==
[2018-01-27 12:02] VITALS: BP 169/100; PULSE 93; RESP 18; O2SAT 94
--- NOTE | 2018-01-27 12:11 | PD ---
HPI Chief Complaint: Chest Pain Time Seen by Provider: 12:07 Travel History International Travel<30 days: No Contact w/Intl Traveler<30days: No Traveled to known affect area: No History of Present Illness HPI This is a 57-year-old male with history of hypertension and epilepsy. He presents via EMS for evaluation of chest pain. Symptoms started this morning at 6:30 AM. He reports that it is a sharp left-sided chest pain which has been constant, seems to be somewhat alleviated when he breathes in deep with no obvious aggravating factors but he reports that he walked to [facility] in order to obtain a prescription refill on he checked his blood pressure was elevated at 180 systolic. EMS provided him 324 mg aspirin, one nitroglycerin spray and he reports that currently the pain is resolved. He denies any shortness of breath , cough or congestion, nausea or vomiting, abdominal pain, lightheadedness, dizziness. He has never experienced this sort of pain before. Reports a history of tobacco use. He has never had a stress test. No other complaints. PFSH Past Medical History Cardiovascular Problems: Yes Diminished Hearing: No Hypertension: Yes Neurologic: Yes (HEAD INJURY ) Immunizations Current: Yes Seizures: Yes Past Surgical History Abdominal Surgery: Yes Neurologic Surgery: Yes (HEAD TRAUMA ) Social History Alcohol Use: No Tobacco Use: Yes (QUITTING) Substance Use: No Allergies-Medications (Allergen,Severity, Reaction): Coded Allergies: No Known Allergies (Unverified , 08/04/17) Reported Meds & Prescriptions Reported Meds & Active Scripts Active Phenytoin Extended 300 Mg Cap 300 Mg PO TID 30 Days Amlodipine (Amlodipine Besylate) 10 Mg Tab 10 Mg PO DAILY 30 Days Review of Systems Except as stated in HPI: all other systems reviewed are Neg Physical Exam Narrative GENERAL: Well-developed well-nourished male in no acute distress sitting upright in hospital bed vital signs reviewed SKIN: Warm and dry. HEAD: Atraumatic. Normocephalic. EYES: Pupils equal and round. No scleral icterus. No injection or drainage. ENT: No nasal bleeding or discharge. Mucous membranes pink and moist. NECK: Trachea midline. No JVD. CARDIOVASCULAR: Regular rate and rhythm. 1+ systolic murmur noted RESPIRATORY: No accessory muscle use. Clear to auscultation. Breath sounds equal bilaterally. GASTROINTESTINAL: Abdomen soft, non-tender, nondistended. Hepatic and splenic margins not palpable. MUSCULOSKELETAL: No obvious deformities. No clubbing. No cyanosis. No edema. NEUROLOGICAL: Awake and alert. No obvious cranial nerve deficits. Motor grossly within normal limits. Normal speech. PSYCHIATRIC: Appropriate mood and affect; insight and judgment normal. Data Data Last Documented VS Vital Signs Date Time Temp Pulse Resp B/P (MAP) Pulse Ox O2 Delivery O2 Flow Rate FiO2 01/27/18 12:28 89 18 144/88 (106) 95 Nasal Cannula 01/27/18 12:26 2.00 Orders Orders Electrocardiogram (01/27/18 12:07) Basic Metabolic Panel (Bmp) (01/27/18 12:07) Ckmb (Isoenzyme) Profile (01/27/18 12:07) Complete Blood Count With Diff (01/27/18 12:07) Magnesium (Mg) (01/27/18 12:07) Prothrombin Time / Inr (Pt) (01/27/18 12:07) Act Partial Throm Time (Ptt) (01/27/18 12:07) Troponin I (01/27/18 12:07) Ecg Monitoring (01/27/18 12:07) Bilateral Bp Monitoring (01/27/18 12:07) Iv Access Insert/Monitor (01/27/18 12:07) Oximetry (01/27/18 12:07) Oxygen Administration (01/27/18 12:07) Sodium Chloride 0.9% Flush (Ns Flush) (01/27/18 12:15) Chest, Pa & Lat (01/27/18 12:07) CKMB (01/27/18 UNK) CKMB% (01/27/18 UNK) Labs Laboratory Tests Test 01/27/18 12:16 White Blood Count 3.8 TH/MM3 Red Blood Count 4.87 MIL/MM3 Hemoglobin 14.0 GM/DL Hematocrit 42.4 % Mean Corpuscular Volume 87.0 FL Mean Corpuscular Hemoglobin 28.7 PG Mean Corpuscular Hemoglobin Concent 33.0 % Red Cell Distribution Width 14.2 % Platelet Count 132 TH/MM3 Mean Platelet Volume 7.9 FL Neutrophils (%) (Auto) 63.6 % Lymphocytes (%) (Auto) 23.7 % Monocytes (%) (Auto) 7.3 % Eosinophils (%) (Auto) 0.7 % Basophils (%) (Auto) 4.7 % Neutrophils # (Auto) 2.4 TH/MM3 Lymphocytes # (Auto) 0.9 TH/MM3 Monocytes # (Auto) 0.3 TH/MM3 Eosinophils # (Auto) 0.0 TH/MM3 Basophils # (Auto) 0.2 TH/MM3 CBC Comment DIFF FINAL Differential Comment Prothrombin Time 11.8 SEC Prothromb Time International Ratio 1.2 RATIO Activated Partial Thromboplast Time 27.3 SEC Blood Urea Nitrogen 13 MG/DL Creatinine 1.16 MG/DL Random Glucose 88 MG/DL Calcium Level 8.4 MG/DL Magnesium Level 1.8 MG/DL Sodium Level 144 MEQ/L Potassium Level 3.9 MEQ/L Chloride Level 110 MEQ/L Carbon Dioxide Level 27.0 MEQ/L Anion Gap 7 MEQ/L Estimat Glomerular Filtration Rate 79 ML/MIN Total Creatine Kinase 311 U/L Creatine Kinase MB 3.8 NG/ML Creatine Kinase MB % 1.2 % Troponin I 0.02 NG/ML MDM Medical Decision Making Medical Screen Exam Complete: Yes Emergency Medical Condition: Yes Medical Record Reviewed: Yes Differential Diagnosis Costochondritis, pericarditis, myocarditis, pneumothorax, hemothorax, acute coronary syndrome, pulmonary embolism, aortic dissection, hypertensive urgency Narrative Course The patient was placed on ECG monitoring pulse oximetry. A 12-lead EKG was obtained revealing sinus rhythm, Q waves in lead III. Plan is for lab work, chest x-ray. Patient is currently chest pain-free. Vital signs reviewed. Oxygen saturation was documented as 94-95% by nursing staff however during my examination the patient's oxygen saturation is wavering between 98 and 100 on room air. The patient is not short of breath. Lab work is been reviewed. Mild thrombocytopenia and leukopenia with a platelet count of 132, WBC count of 3.8. BMP reveals a total CK of 311 otherwise unremarkable. At this point time the plan would be to admit him into the chest pain center for serial cardiac enzymes and rule out purposes. He is agreeable. Diagnosis Primary Impression: Chest pain Admitting Information Admitting Physician Requests: Vinnie Santiago January 27, 2018 12:11
[2018-01-27] MEDS ORDERED: SODIUM CHLORIDE 0.9% FLUSH 10 ML FLUSH IVF PRN (12:15)
[2018-01-27 12:25] LABS: AUTOMATED NEUTROPHIL # 2.4 TH/MM3 (1.8-7.7); BASOPHIL # 0.2 TH/MM3 (0-0.2); BASOPHIL % 4.7 % (0.0-2.0); EOSINOPHIL % 0.7 % (0.0-4.0); HEMATOCRIT 42.4 % (39.0-51.0); LYMPH % 23.7 % (9.0-44.0); LYMPHOCYTE # 0.9 TH/MM3 (1.0-4.8); MEAN CORPUSCULAR HEMOGLOBIN 28.7 PG (27.0-34.0); MEAN PLATELET VOLUME 7.9 FL (7.0-11.0); MONO % 7.3 % (0.0-8.0); MONOCYTE # 0.3 TH/MM3 (0-0.9); NEUT % 63.6 % (16.0-70.0); PLATELET COUNT 132 TH/MM3 (150-450); RED BLOOD COUNT 4.87 MIL/MM3 (4.50-5.90); RED CELL DISTRIBUTION WIDTH 14.2 % (11.6-17.2); WHITE BLOOD COUNT 3.8 TH/MM3 (4.0-11.0)
[2018-01-27 12:26] VITALS: O2SAT 93
[2018-01-27 12:28] VITALS: BP 144/88; PULSE 89; RESP 18; O2SAT 95
[2018-01-27 12:36] LABS: INTERNATIONAL NORMALIZED RATIO 1.2 RATIO; PROTHROMBIN TIME - PATIENT 11.8 SEC (9.8-11.6)
[2018-01-27 12:58] LABS: CALCIUM 8.4 MG/DL (8.5-10.1); CREATININE 1.16 MG/DL (0.60-1.30); MAGNESIUM 1.8 MG/DL (1.5-2.5); TROPONIN I 0.02 NG/ML (0.02-0.05)
--- NOTE | 2018-01-27 13:17 | RADRPT ---
EXAM DATE/TIME: 01/27/2018 12:57 [facility] COMPARISON: CHEST PA & LAT, October 10, 2017, 15:28. INDICATIONS : Midline chest pain. MEDICAL HISTORY : Hypertension. SURGICAL HISTORY : None. ENCOUNTER: Initial ACUITY: 1 day PAIN SCORE: 1/10 LOCATION: Bilateral middle chest. FINDINGS: There is minimal interstitial prominence with mild cardiomegaly. There is no consolidation. No ple ural effusion. No pneumothorax. The portion of the bony skeleton visualized is unremarkable. CONCLUSION: Cardiomegaly with mild interstitial prominence. This may be cardiac or noncardiac. Thee Guadalupe MD FACR on January 27, 2018 at 13:14 Board Certified Radiologist. This report was verified electronically.
[2018-01-27] MEDS ORDERED: NITROGLYCERIN 0.4 MG SL 25 TABS/BTL SL PRN (14:30)
[2018-01-27] MEDS ORDERED: SODIUM CHLORIDE 0.9% FLUSH 10 ML FLUSH IV FLUSH PRN (14:30)
[2018-01-27] MEDS ORDERED: ONDANSETRON HCL 4 MG/2 ML VIAL IV PUSH PRN (14:30)
[2018-01-27] MEDS ORDERED: ACETAMINOPHEN 500 MG CPLT PO PRN (14:30)
[2018-01-27 14:43] VITALS: BP 180/100; PULSE 78; RESP 20; TEMP 97.7; O2SAT 95
[2018-01-27 15:36] VITALS: BP 170/106; PULSE 75; PULSE 81; RESP 20; TEMP 97.5; O2SAT 93
--- NOTE | 2018-01-27 15:45 | HHI.HP ---
HPI Primary Care Physician Unknown Chief Complaint Chest pain History of Present Illness 57-year-old male with history of hypertension and epilepsy presents emergency room for further evaluation of chest pain. Onset this morning. Location left anterior chest. Characterized as sudden onset sharpness. No radiation. No associated symptoms of nausea, vomiting, dyspnea, or diaphoresis. No known precipitating or relieving factors. Denies similar pain in the past. Review of Systems General: No fatigue,weakness, fever, chills, or recent illness. Has been in his general state of health. HEENT: No SANTIAGO, no dysphasia CV: As stated above. No palpitations, intermittent leg pain, or dizziness RESP: No SOB, cough, wheeze. GI: No nausea, vomiting, bowel changes : No dysuria, urgency, frequency EXT: No lower leg edema, no paraesthesias MS: No discomfort, recent injury, or change in ROM NEURO: No difficulty with balance, LOC, motor/sensory deficits PSYCH: No anxiety or depression SKIN: No rashes, no concerning lesions Past Family Social History Allergies: Coded Allergies: No Known Allergies (Unverified , 08/04/17) Past Medical History Hypertension, epilepsy s/p head injury in 90s Reported Medications Reported Meds & Active Scripts Active Phenytoin Extended 300 Mg Cap 300 Mg PO TID 30 Days Amlodipine (Amlodipine Besylate) 10 Mg Tab 10 Mg PO DAILY 30 Days Active Ordered Medications Current Medications Medications (Trade) Dose Ordered Sig/Celestine Route Start Time Stop Time Status Last Admin (NS Flush) 2 ml UNSCH PRN IV FLUSH 01/27/18 14:30 (NS Flush) 2 ml BID IV FLUSH 01/27/18 21:00 (Tylenol) 500 mg Q4H PRN PO 01/27/18 14:30 (Zofran Inj) 4 mg Q6H PRN IV PUSH 01/27/18 14:30 (Nitrostat Sl) 0.4 mg Q5M PRN SL 01/27/18 14:30 (Aspirin) 325 mg DAILY PO 01/28/18 09:00 (Norvasc) 10 mg DAILY PO 01/28/18 09:00 (Dilantin) 300 mg TID PO 01/27/18 18:00 Family History Noncontributory for early onset cardiovascular disease. Social History Known hypertension. No known coronary artery disease, diabetes, or hyperlipidemia. Currently cutting back on his smoking habit reporting for cigarette smoke in past 4 days. 50 Pack year history. Visiting from [facility]. Endorses sedentary lifestyle. Past cardiac testing None Physical Exam Vital Signs Vital Signs Date Time Temp Pulse Resp B/P (MAP) Pulse Ox O2 Delivery O2 Flow Rate FiO2 01/27/18 15:36 97.5 75 20 170/106 (127) 93 01/27/18 14:48 01/27/18 14:43 97.7 78 20 180/100 (126) 95 01/27/18 12:28 89 18 144/88 (106) 95 Nasal Cannula 01/27/18 12:26 93 Nasal Cannula 2.00 01/27/18 12:26 89 Room Air 01/27/18 12:04 98 20 95 Room Air 01/27/18 12:02 93 18 169/100 (123) 94 Physical Exam GENERAL: Alert WN, WD, NAD, pleasant, tall, -[place] male HEAD: NC, AT EYES: Sclera clear, conjunctiva without injection, pupils equal and round ENT: Mucous membranes pink and moist NECK: Supple, no masses, trachea midline CV: RRR, without murmur, rub, gallop, no JVD, S1-S2 no S3-S4. Left anterior chest point tenderness with palpation RESP: Clear lungs throughout bilateral, no crackles, wheeze, rhonchi, symmetrical chest rise, nonlabored, able to speak in full sentences ABD: Soft, NT, ND, no masses, positive bowel tones EXT: Pulses +2x4, no dependent edema MS: Normal tone x4 extremities, nontender, no obvious deformities, full range of motion NEURO: CN II through CN XII grossly intact, motor strength 5/5, gait WNL PSYCH: A+O x3, pleasant affect, appropriate speech, mood, insight and judgment SKIN: Normal turgor, normal texture, no lesions, no rashes Laboratory Laboratory Tests Test 01/27/18 12:16 01/27/18 15:16 White Blood Count 3.8 Red Blood Count 4.87 Hemoglobin 14.0 Hematocrit 42.4 Mean Corpuscular Volume 87.0 Mean Corpuscular Hemoglobin 28.7 Mean Corpuscular Hemoglobin Concent 33.0 Red Cell Distribution Width 14.2 Platelet Count 132 Mean Platelet Volume 7.9 Neutrophils (%) (Auto) 63.6 Lymphocytes (%) (Auto) 23.7 Monocytes (%) (Auto) 7.3 Eosinophils (%) (Auto) 0.7 Basophils (%) (Auto) 4.7 Neutrophils # (Auto) 2.4 Lymphocytes # (Auto) 0.9 Monocytes # (Auto) 0.3 Eosinophils # (Auto) 0.0 Basophils # (Auto) 0.2 CBC Comment DIFF FINAL Differential Comment Prothrombin Time 11.8 Prothromb Time International Ratio 1.2 Activated Partial Thromboplast Time 27.3 Blood Urea Nitrogen 13 Creatinine 1.16 Random Glucose 88 Calcium Level 8.4 Magnesium Level 1.8 Sodium Level 144 Potassium Level 3.9 Chloride Level 110 Carbon Dioxide Level 27.0 Anion Gap 7 Estimat Glomerular Filtration Rate 79 Total Creatine Kinase 311 Creatine Kinase MB 3.8 Creatine Kinase MB % 1.2 Troponin I 0.02 Result Diagram: 01/27/18 1216 01/27/18 1216 Imaging Last 48 hours Impressions Chest X-Ray 01/27/18 1207 Signed Impressions: Service Date/Time: Saturday, January 27, 2018 12:57 - CONCLUSION: Cardiomegaly with mild interstitial prominence. This may be cardiac or noncardiac. Thee Guadalupe MD FACR Course EKG Normal sinus rhythm, no ST changes, criteria for LVH Caprini VTE Risk Assessment Caprini VTE Risk Assessment: No/Low Risk (score <= 1) Caprini Risk Assessment Model Point Value = 1 Point Value = 2 Point Value = 3 Point Value = 5 Age 41-60 Minor surgery BMI > 25 kg/m2 Swollen legs Varicose veins or History of unexplained or recurrent spontaneous Oral contraceptives or hormone replacement Sepsis (< 1 month) Serious lung disease, including pneumonia (< 1 month) Abnormal pulmonary function Acute myocardial infarction Congestive heart failure (< 1 month) History of inflammatory bowel disease Medical patient at bed rest Age 61-74 Arthroscopic surgery Major open surgery (> 45 min) Laparoscopic surgery (> 45 min) Malignancy Confined to bed (> 72 hours) Immobilizing plaster cast Central venous access Age >= 75 History of VTE Family history of VTE Factor V Leiden Prothrombin [id number] Lupus anticoagulant Anticardiolipin antibodies Elevated serum homocysteine Heparin-induced thrombocytopenia Other congenital or acquired thrombophilia Stroke (< 1 month) Elective arthroplasty Hip, pelvis, or leg fracture Acute spinal cord injury (< 1 month) Prophylaxis Regimen Total Risk Factor Score Risk Level Prophylaxis Regimen 0-1 Low Early ambulation 2 Moderate Order ONE of the following: *Sequential Compression Device (SCD) *Heparin 5000 units SQ BID 3-4 Higher Order ONE of the following medications: *Heparin 5000 units SQ TID *Enoxaparin/Lovenox 40 mg SQ daily (WT < 150 kg, CrCl > 30 mL/min) *Enoxaparin/Lovenox 30 mg SQ daily (WT < 150 kg, CrCl > 10-29 mL/min) *Enoxaparin/Lovenox 30 mg SQ BID (WT < 150 kg, CrCl > 30 mL/min) AND/OR *Sequential Compression Device (SCD) 5 or more Highest Order ONE of the following medications: *Heparin 5000 units SQ TID (Preferred with Epidurals) *Enoxaparin/Lovenox 40 mg SQ daily (WT < 150 kg, CrCl > 30 mL/min) *Enoxaparin/Lovenox 30 mg SQ daily (WT < 150 kg, CrCl > 10-29 mL/min) *Enoxaparin/Lovenox 30 mg SQ BID (WT < 150 kg, CrCl > 30 mL/min) AND *Sequential Compression Device (SCD) Assessment and Plan Assessment and Plan #1 Atypical chest pain-admitted chest pain center. Seen and evaluated by Dr. Theodore Quintero. Proceed with exercise cardiac testing this afternoon. If unremarkable, plans to discharge later this afternoon with follow up with primary care provider once returning to [facility]. #2 History of hypertension-continue amlodipine, giving an additional dose now, Terazosin 2mg PO x1 day will be given upon discharge, encourage smoking cessation, low sodium diet, and increasing daily aerobic activity. Made aware of cardiomegaly identified on chest xray and discussed importance of tight blood pressure control. #3 Tobacco use-strongly encouraged and stressed the importance of tobacco cessation. Instructed to quit smoking. Niyah Barnhart January 27, 2018 15:45
[2018-01-27] MEDS ORDERED: TERA2CAP3 PO (15:46)
[2018-01-27 15:56] LABS: TROPONIN I 0.02 NG/ML (0.02-0.05)
--- NOTE | 2018-01-27 17:15 | HHI.DCPOC ---
Discharge Care Plan Diagnosis: (1) Hypertension (2) Musculoskeletal chest pain Goals to Promote Your Health * To prevent worsening of your condition and complications * To maintain your health at the optimal level Directions to Meet Your Goals Take your medications as prescribed Follow your dietary instruction Follow activity as directed Keep your appointments as scheduled Take your immunizations and boosters as scheduled If your symptoms worsen call your PCP, if no PCP go to Urgent Care Center or Emergency Room Smoking is Dangerous to Your Health. Avoid second hand smoke Call the 24-hour hour crisis hotline for domestic abuse at Niyah Barnhart January 27, 2018 17:15
[2018-01-27] MEDS ORDERED: PHENYTOIN SODIUM 100 MG CAP PO SCH (18:00)
--- NOTE | 2018-01-27 18:26 | PD ---
Data Data Last Documented VS Vital Signs Date Time Temp Pulse Resp B/P (MAP) Pulse Ox O2 Delivery O2 Flow Rate FiO2 01/27/18 12:28 89 18 144/88 (106) 95 Nasal Cannula 01/27/18 12:26 2.00 Orders Orders Electrocardiogram (01/27/18 12:07) Basic Metabolic Panel (Bmp) (01/27/18 12:07) Ckmb (Isoenzyme) Profile (01/27/18 12:07) Complete Blood Count With Diff (01/27/18 12:07) Magnesium (Mg) (01/27/18 12:07) Prothrombin Time / Inr (Pt) (01/27/18 12:07) Act Partial Throm Time (Ptt) (01/27/18 12:07) Troponin I (01/27/18 12:07) Ecg Monitoring (01/27/18 12:07) Bilateral Bp Monitoring (01/27/18 12:07) Iv Access Insert/Monitor (01/27/18 12:07) Oximetry (01/27/18 12:07) Oxygen Administration (01/27/18 12:07) Sodium Chloride 0.9% Flush (Ns Flush) (01/27/18 12:15) Chest, Pa & Lat (01/27/18 12:07) CKMB (01/27/18 UNK) CKMB% (01/27/18 UNK) Admit Order (Ed Use Only) (01/27/18 13:42) Labs Laboratory Tests Test 01/27/18 12:16 White Blood Count 3.8 TH/MM3 Red Blood Count 4.87 MIL/MM3 Hemoglobin 14.0 GM/DL Hematocrit 42.4 % Mean Corpuscular Volume 87.0 FL Mean Corpuscular Hemoglobin 28.7 PG Mean Corpuscular Hemoglobin Concent 33.0 % Red Cell Distribution Width 14.2 % Platelet Count 132 TH/MM3 Mean Platelet Volume 7.9 FL Neutrophils (%) (Auto) 63.6 % Lymphocytes (%) (Auto) 23.7 % Monocytes (%) (Auto) 7.3 % Eosinophils (%) (Auto) 0.7 % Basophils (%) (Auto) 4.7 % Neutrophils # (Auto) 2.4 TH/MM3 Lymphocytes # (Auto) 0.9 TH/MM3 Monocytes # (Auto) 0.3 TH/MM3 Eosinophils # (Auto) 0.0 TH/MM3 Basophils # (Auto) 0.2 TH/MM3 CBC Comment DIFF FINAL Differential Comment Prothrombin Time 11.8 SEC Prothromb Time International Ratio 1.2 RATIO Activated Partial Thromboplast Time 27.3 SEC Blood Urea Nitrogen 13 MG/DL Creatinine 1.16 MG/DL Random Glucose 88 MG/DL Calcium Level 8.4 MG/DL Magnesium Level 1.8 MG/DL Sodium Level 144 MEQ/L Potassium Level 3.9 MEQ/L Chloride Level 110 MEQ/L Carbon Dioxide Level 27.0 MEQ/L Anion Gap 7 MEQ/L Estimat Glomerular Filtration Rate 79 ML/MIN Total Creatine Kinase 311 U/L Creatine Kinase MB 3.8 NG/ML Creatine Kinase MB % 1.2 % Troponin I 0.02 NG/ML MDM Supervised Visit with RAYMUNDO: Yes Narrative Course The history, exam, and medical decision-making in the associated midlevel provider note were completed with my assistance. I reviewed and agree with the findings presented. I attest that I had a [id number] encounter with the patient on the same day, and personally performed and documented my assessment and findings in the medical record. *My assessment and Findings: This is a 57-year-old male who presents the emergency department with atypical chest pain. EKG is nonischemic. Patient also had several episodes of high blood pressure at the pharmacy. Patient is low risk for acute coronary syndrome by serial cardiac enzymes will be obtained and he will be placed in the chest pain center. I doubt other life-threatening etiology of chest pain given his well appearance. Diagnosis Primary Impression: Chest pain Patient Instructions: Terazosin (By mouth), Chest Pain (DC) Scripts Terazosin (Terazosin) 2 Mg Cap 2 MG PO HS for Blood Pressure Management, #30 CAP 1 Refill Prov: Niyah Barnhart 01/27/18 Nan Tejada MD January 27, 2018 18:26
[2018-01-27] MEDS ORDERED: SODIUM CHLORIDE 0.9% FLUSH 10 ML FLUSH IV FLUSH SCH (21:00)
--- NOTE | 2018-01-28 07:46 | EKG ---
Date Performed: 01/27/2018 Time Performed: 12:12:20 PTAGE: 57 years EKG: Sinus rhythm POSSIBLE LEFT ATRIAL ENLARGEMENT POSSIBLE LEFT VENTRICULAR HYPERTROPHY ABNORMAL ECG Since PREVIOUS TRACING , no significant change noted DOCTOR: eDnia Morrissey Interpretating Date/Time 01/28/2018 07:45:26
--- NOTE | 2018-01-28 07:46 | EKG ---
Date Performed: 01/27/2018 Time Performed: 15:29:11 PTAGE: 57 years EKG: Sinus rhythm WITH FIRST DEGREE AV BLOCK POSSIBLE LEFT ATRIAL ENLARGEMENT POSSIBLE LEFT VENTRICULAR HYPERTROPHY AB NORMAL ECG Since PREVIOUS TRACING , no significant change noted DOCTOR: Denia Morrissey Interpretating Date/Time 01/28/2018 07:45:55
--- NOTE | 2018-01-28 07:46 | TR ---
Date Performed: 01/27/2018 Time Performed: 16:12:22 DOCTOR: Denia Morrissey DRUG LIST: CLINICAL HISTORY: CHEST PAIN REASON FOR TEST: Chest pain REASON FOR ENDING: OBSERVATION: CONCLUSION: Rafiq protocol completed. Stopped sec to exceeding target heart rate and leg fatigue . Maximum MH=887 Target HR Achieved=88.0% Maximum HQ=690/102 Total Exercise Time=3:00. No reprod ches t discomfort. Poor exercise reponse. Rare PVC. Upsloping st segments. Hypertensive response. Recovery quick and unremarkable. COMMENTS: No ischemia
[2018-01-28] MEDS ORDERED: ASPIRIN 325 MG TAB PO SCH (09:00)
== END 2018-01-27 18:34 | disposition home or self-care (01) ==
LOC: NEPE 11:58 → NEDA 13:43 → NEPFCDU 14:44
PROVIDERS: ADMIT Internal Medicine Cardiovascular Disease; ATTEND Internal Medicine Cardiovascular Disease
DX: R07.89 Other chest pain (principal); G40.909 Epilepsy, unspecified, not intractable, without status epilepticus; I10 Essential (primary) hypertension; I51.7 Cardiomegaly; R94.31 Abnormal electrocardiogram [ECG] [EKG]; D69.6 Thrombocytopenia, unspecified; D72.819 Decreased white blood cell count, unspecified; F17.200 Nicotine dependence, unspecified, uncomplicated; Z87.828 Personal history of other (healed) physical injury and trauma; Z79.899 Other long term (current) drug therapy
CPT/HCPCS: 71046; 80048; 82550; 82552; 83735; 84484; 85025; 85610; 85730; 93005; 93017; 99285; G0378